=== PATIENT | female | born 1970 | race Caucasian/White ===

== ENCOUNTER 2018-01-18 16:33 | Emergency (ER) | payer OTHER ==
[2018-01-18 17:59] LABS: ABSOLUTE BASOPHIL COUNT 0 /CUMM (0.0-0.2); ABSOLUTE EOSINOPHIL COUNT 0.1 /CUMM (0.0-0.7); ABSOLUTE GRANULOCYTE CT 6.2 /CUMM (1.4-6.5); ABSOLUTE LYMPH COUNT 1.7 /CUMM (1.2-3.4); ABSOLUTE MONOCYTE COUNT 0.5 /CUMM (0.10-0.60); BASOPHIL % 0.3 % (0.0-2.0); EOSINOPHIL % 1.3 % (0-5); GRANULOCYTE % 72.5 % (42.2-75.2); HEMATOCRIT 41.7 % (37-47); MEAN CORPUSCULAR HGB 28.9 PG (27.0-31.0); MEAN CORPUSCULAR HGB CONC 34.1 G/DL (33.0-37.0); MEAN CORPUSCULAR VOLUME 84.7 FL (81.0-99.0); MEAN PLATELET VOLUME 8.2 FL (7.4-10.4); PLATELET COUNT 305 /CUMM (130-400); RBC DISTRIBUTION WIDTH 13.6 % (11.5-14.5); RED BLOOD CELL CT 4.93 /CUMM (4.20-5.40); WHITE BLOOD CELL COUNT 8.5 /CUMM (4.8-10.8)
[2018-01-18] MEDS ORDERED: SF 5000 PLUS51 GM TOP (20:02)
--- NOTE | 2018-01-18 20:27 | CT SCAN REPORT ---
EXAMINATION: CT ANGIOGRAM OF THE HEAD CT ANGIOGRAM OF THE NECK CLINICAL INFORMATION: Headaches and visual changes. Assess for CVA. COMPARISON: None. TECHNIQUE: A noncontrast axial CT scan of the head was obtained. Test bolus series followed by intravenous administration 95 mL of Optiray 320. Helical imaging was performed in the axial plane from the mediastinum to the skull vertex. The degree of stenosis is based off NASCET criteria. The data was processed at the fastener technologist workstation for generation of MIP images. Three-dimensional volume rendered reformatted images were also generated at an offline 3-D workstation. DLP: 2449.72 mGy-cm FINDINGS: CT Head: There is no evidence of acute intracranial hemorrhage or territorial infarction. No abnormal mass-effect or midline shift is seen. Abad to white matter differentiation is well preserved. No extra-axial fluid collections are identified. There is no abnormal enhancement. The ventricles are normal in size. There is no abnormal attenuation within the brain parenchyma. The osseous structures and soft tissues are normal. The mastoid air cells are well-aerated. There are retention cysts in the bilateral maxillary sinuses. CTA Neck: There is a classic configuration of the arch of the aorta. The great vessels of the neck are widely patent. The subclavian arteries appear normal bilaterally. The common carotid arteries have normal caliber. The carotid bifurcations bilaterally appear normal. The internal carotid arteries in the neck bilaterally have uniform and normal caliber. The origins of both vertebral arteries are well seen and appear normal. Both vertebral arteries are widely patent and demonstrate good opacification throughout their cervical course. The right vertebral artery is slightly dominant. Nonvascular: The thyroid gland has slightly heterogenous density. There is no cervical lymphadenopathy. There are multilevel spondylitic changes in the cervical spine, most prominent at C5-C6 and C6-C7. CTA Head: In the anterior circulation, the distal internal carotid arteries within the neck appear normal. The intracranial internal carotid arteries and their bifurcations appear normal. The middle and anterior cerebral arteries bilaterally demonstrate normal caliber with no evidence of focal stenosis, aneurysm or vascular malformation. There is normal arborization of the middle cerebral artery branches. The anterior communicating artery is normal. In the posterior circulation, the right vertebral artery is dominant. The vertebral arteries intradurally have uniform caliber. The proximal basilar artery is fenestrated. More distally the vessel has uniform caliber. The posterior cerebral arteries have normal caliber. The venous sinuses opacify normally. IMPRESSION: 1. There are no acute bleeds or territorial infarcts. There are no masses or areas of abnormal enhancement. 2. There are no focal stenoses, aneurysms or vascular malformations in the head and neck circulation. Fenestration of the basilar artery is a normal variant. 3. There are spondylitic changes in the cervical spine. There retention cysts in the bilateral maxillary sinuses.
[2018-01-18 20:32] VITALS: BP 148/87
--- NOTE | 2018-01-18 20:48 | ED AMS/SEIZURE/WEAK/DIZZY ---
History of Present Illness General Chief Complaint: Eye Problems Stated Complaint: PT EYE GAVE HER A PROBLEM Source: patient Exam Limitations: no limitations Vital Signs & Intake/Output Vital Signs & Intake/Output Vital Signs Date Time Temp Pulse Resp B/P B/P Pulse O2 O2 Flow FiO2 Mean Ox Delivery Rate 01/19 2040 Room Air 01/19 2032 98.2 72 18 148/87 96 Room Air 01/18 1647 99.1 92 16 131/89 98 Room Air Allergies Coded Allergies: Penicillins (Intermediate, HIVES 01/18/18) Reconcile Medications Sodium Fluoride (Sf 5000 Plus) 1.1 % CREAM..G. 1 WILY TOP BID TEETH (Reported) Triage Note: PT TO ED WITH C/O SENSATION THAT "EYES WERE NOT WORKING TOGETHER" WHEN SHE WAS BENT OVER AT THE [employer]GRAM [employer] THIS AFTERNOON. REPORTS HX OF OCCULAR HEADACHES, STATES DID NOT FEEL LIKE ONE. STATES EPISODE LASTED LESS THAN 5 MINUTES. DENIED BLURRY OR DOUBLE VISION. NEURO CHECK INTACT. CALLED PCP WHO TOLD HER TO COME TO ED FOR A HEAD CT SCAN. Triage Nurses Notes Reviewed? yes HPI: 47-year-old white female who noticed slight double vision while bending over her washing machine earlier this afternoon which was followed by a bandlike headache. The patient denies any photophobia, nausea, vomiting, or abnormal leg weakness, paresthesias, difficulty with speech, vision loss, difficulty expressing herself or abnormalities in gait. She reports a previous history of occipital migraines but says that this was somewhat different. She was referred here by her PCP to obtain a CT scan of the head. Past History Travel History Traveled to [place] past 21 day No Medical History Any Pertinent Medical History? see below for history Neurological: OCCULAR HEADACHES Cardiovascular: MITRAL VALVE PROLAPSE BIGEMINY Blood Disorders: anemia Surgical History Surgical History: non-contributory Psychosocial History What is your primary language Yakut Tobacco Use: Never used ETOH Use: denies use Illicit Drug Use: denies illicit drug use Family History Hx Contributory? No Review of Systems Review of Systems Constitutional: Reports: see HPI. Denies: no symptoms, chills, diaphoresis, fever, malaise, weakness, unexplained weight loss. All Other Systems: Reviewed and Negative Physical Exam Physical Exam General Appearance: well developed/nourished, no apparent distress, alert, awake Head: atraumatic, normal appearance Eyes: Bilateral: normal appearance, PERRL, EOMI. Ears, Nose, Throat: normal pharynx, normal ENT inspection, hearing grossly normal Neck: normal inspection, supple, full range of motion Respiratory: normal breath sounds, chest non-tender, no respiratory distress, quiet respiration, lungs clear Cardiovascular: regular rate/rhythm Gastrointestinal: normal bowel sounds, soft, non-tender, no organomegaly Extremities: normal range of motion, evidence of injury Neurologic/Psych: no motor/sensory deficits, awake, alert, oriented x 3, normal gait, normal mood/affect, interactive designer II-XII nml as tested Skin: intact, normal color, warm/dry Core Measures ACS in differential dx? No CVA/TIA Diagnosis No Sepsis Present: No Sepsis Focused Exam Completed? No Progress Differential Diagnosis: arrythmia, CVA/stroke, intracranial mass/tumor, migraine BENITEZ, multiple sclerosis Plan of Care: Orders Procedure Date/time Status MISTAKE 01/18 172 Active COMPREHENSIVE METABOLIC PANEL 01/18 172 Complete CBC WITHOUT DIFFERENTIAL 01/18 1727 Complete EKG 01/18 1653 Active Laboratory Tests 01/18/18 1740: Anion Gap 10, Estimated GFR > 60, BUN/Creatinine Ratio 18.6, Glucose 97, Calcium 9.4, Total Bilirubin 0.4, AST 21, ALT 17, Alkaline Phosphatase 72, Total Protein 8.0, Albumin 4.8, Globulin 3.2, Albumin/Globulin Ratio 1.5, CBC w Diff NO MAN DIFF REQ, RBC 4.93, MCV 84.7, MCH 28.9, MCHC 34.1, RDW 13.6, MPV 8.2, Gran % 72.5, Lymphocytes % 20.0 L, Monocytes % 5.9, Eosinophils % 1.3, Basophils % 0.3 , Absolute Granulocytes 6.2, Absolute Lymphocytes 1.7, Absolute Monocytes 0.5, Absolute Eosinophils 0.1, Absolute Basophils 0 Initial ED EKG: normal axis, normal intervals, normal p-waves, normal QRS complex, normal sinus rhythm Comments: 47-year-old white female with transient episode of diplopia associated with a subsequent bandlike headache which is not typical of her occipital migraines. Patient's neuro workup in the emergency department was negative. She is advised to follow-up with a neurologist to consider an MRI for further testing. There is no indication of a TIA and the patient's presentation suggests more of an atypical migraine Departure Departure Time of Disposition: 2044 Disposition: HOME OR SELF CARE Condition: Stable Clinical Impression Primary Impression: Diplopia Referrals: Mina CAAL,Ra Mcfarlane Departure Forms: Customer Survey General Discharge Information
== END 2018-01-18 21:16 ==
LOC: ERH 16:33
PROVIDERS: Physician Assistant
DX: H53.30 Unspecified disorder of binocular vision (principal)
CPT/HCPCS: 93005; 93010